=== PATIENT | female | born 1995 | race Caucasian/White ===

== ENCOUNTER → 2018-09-28 21:43 | Outpatient (CLI) | payer OTHER, SELFPAY ==
[2018-09-28 16:51] VITALS: BMI 36.3
[2018-09-29 12:43] LABS: HIV - WCH Non-Reactive (Nonreactive)
[2018-09-30 04:07] LABS: HEPATITIS B SURFACE AG 6510 Negative (Negative); Hepatitis C Ab 0.1 s/co ratio (0.0-0.9)
[2018-09-30 11:51] LABS: Hep B Surface Antibodies Non Reactive (.)
== END ==
PROVIDERS: Visit Provider Nurse Practitioner
DX: Z20.2 Contact with and (suspected) exposure to infections with a predominantly sexual mode of transmission (principal)
CPT/HCPCS: 86703; 86706; 86803; 87340